=== PATIENT | female | born 1950 | race Two or more races ===

== ENCOUNTER 2024-02-23 17:01 | Inpatient (IN) | payer OTHER ==
[~2024-02-23] VITALS: Ht 157.5 cm; Wt 90.9 kg
[2024-02-23] MEDS ORDERED: ACETAMINOPHEN IV 1000 MG/100ML (10MG/ML) IV PRN (17:15)
[2024-02-23 17:35] VITALS: PULSE 112; RESP 22; O2SAT 98
[2024-02-23] MEDS: VANCOMYCIN 1GM/200ML 200 ML IV ONE (17:50)
[2024-02-23] MEDS: ACETAMINOPHEN IV 1000 MG/100ML (10MG/ML) IV ONE (17:55)
[2024-02-23 18:14] LABS: Basophils # (auto) 0.1 10 ^3/uL (0-0.2); Basophils % (auto) 0.3 % (0.0-2.0); Eosinophils # (auto) 0 10 ^3/uL (0-0.8); Monocytes # (auto) 1.1 10 ^3/uL (0-1.3); Monocytes % (auto) 5.5 % (0.0-12.0)
[2024-02-23 18:15] LABS: Hematocrit 30.3 % (36.0-46.0); Hemoglobin 9.9 g/dL (12.2-16.2); Lymphocytes % (auto) 5.2 % (10.0-50.0); Mean Corpuscular Hemoglobin 25.4 pg (28.0-32.0); Mean Corpuscular Hgb Conc. 32.7 g/dL (32.0-36.0); Mean Corpuscular Volume 77.6 fL (80.0-100.0); Neutrophils # (auto) 17.2 10 ^3/uL (1.6-8.6); Red Blood Cells 3.91 10^6/uL (4.0-5.20); White Blood Cell 19.4 10^3/uL (4.4-10.8)
[2024-02-23 18:30] LABS: INR 1.38 (0.9-1.15); Prothrombin Time 14.3 sec (9.3-11.8)
[2024-02-23] MEDS: KETOROLAC TROMETH 30 MG/ML 1ML VIAL IV ONE (19:12)
[2024-02-23] MEDS: CEFEPIME 2GM/50ML NS 50 ML IV ONE (19:12)
[2024-02-23 19:23] LABS: Alanine Aminotransferase 13 U/L (7-40); Albumin 3.2 g/dL (3.2-4.8); Alkaline Phosphatase 241 U/L (46-116); Anion Gap 9 (5-15); Aspartate Aminotransferase 48 U/L (13-40); BUN/Creatinine Ratio 6.1 (10.0-20.0); Blood Alcohol < 3.0 mg/dL (<10); Blood Urea Nitrogen 6 mg/dL (9-23); Calcium 8.3 mg/dL (8.5-10.1); Carbon Dioxide 20 mmol/L (20-30); Chloride 101 mmol/L (98-107); Glucose 238 mg/dL (74-106); Potassium 4.1 mmol/L (3.5-5.1); Sodium 130 mmol/L (136-145)
[2024-02-23 19:24] LABS: Bilirubin, Total 0.4 mg/dL (0.2-1.0); Total Protein 5.9 g/dL (5.7-8.2)
[2024-02-23 19:28] LABS: Magnesium 0.8 mg/dL (1.6-2.6)
[2024-02-23 19:30] VITALS: PULSE 91; RESP 20; O2SAT 96
[2024-02-23 20:28] LABS: Urine Bacteria MOD /hpf (None Seen); Urine Blood 2+ /uL (Negative); Urine Clarity Ex.Turbid (Clear); Urine Color Light-Orange (Yellow); Urine Mucus FEW (None Seen); Urine Protein, UAD 1+ (Negative); Urine Specific Gravity 1.017 (1.001-1.035); Urine Urobilinogen Normal (Negative); Urine WBC 81 /hpf (0 - 5); Urine WBC Clumps PRESENT /hpf (None Seen)
[2024-02-23 20:34] LABS: Amphetamine Screen, Urine Neg (NEGATIVE); Barbiturate Scree,Urine Neg (NEGATIVE); Benzodiazephine Screen, Urine Neg (NEGATIVE)
[2024-02-23 20:35] LABS: Cannabinoid Screen, Urine Neg (NEGATIVE); Cocaine Screen, Urine Neg (NEGATIVE); Opiate Scree,Urine Pos (NEGATIVE); Phencyclidine Screen, Urine Neg (NEGATIVE)
[2024-02-23] MEDS: SODIUM CHLORIDE 0.9% 2,000 ML IV ONE (20:56)
[2024-02-23] MEDS: MAGNESIUM SULFATE 1GM/100ML 100 ML IV SCH ×2 (20:57→23:40)
[2024-02-23] MEDS ORDERED: ACETAMINOPHEN 650 MG RECT SUPP PR PRN (22:00)
[2024-02-23] MEDS ORDERED: DOCUSATE SOD 100 MG CAP PO PRN (22:00)
[2024-02-23] MEDS ORDERED: VANCOMYCIN PER PHARMACY 0 MG IV SCH (22:00)
[2024-02-23] MEDS ORDERED: DEXTROSE (50%) 50ML SYRG IV PRN (22:00)
[2024-02-23] MEDS ORDERED: hydrALAZINE HCL 20 MG/ML VL IV PRN (22:00)
[2024-02-23] MEDS: SODIUM CHLORIDE 0.9% 250 ML IV ONE (23:31)
[2024-02-24] VITALS (7 sets, daily range): BP systolic 109–137; BP diastolic 46–80; PULSE 66–96; RESP 15–18; TEMP 98–100; O2SAT 96–100
[2024-02-24] MEDS ORDERED: MORPHINE SULFATE INJ 2 MG/ml SYRG IV PRN
[2024-02-24] MEDS ORDERED: NITROGLYCERIN 0.4 MG SL TAB SL PRN
[2024-02-24] MEDS: SODIUM CHLORIDE 0.9% 500 ML IV ONE (00:31)
[2024-02-24] MEDS: VANCOMYCIN 1,500 MG in D5W 5% 250 ML IV ONE ×2 (00:32→05:15)
[2024-02-24] MEDS: ACCU-CHEK COMFORT CURVE STRIP VI SCH ×2 (00:49→17:34)
[2024-02-24] MEDS: InsuLIN REG 1unit/0.01ml Soln (100units/ml) SC SCH ×2 (00:50→17:00)
[2024-02-24] MEDS: SODIUM CHLORIDE 0.9% 1,000 ML IV SCH (00:52)
[2024-02-24] MEDS: HYDROcodone-ACET 5/325MG TAB PO PRN (03:08)
[2024-02-24] MEDS: ONDANSETRON HCL 4 MG/2 ML VIAL IV PRN (03:13)
[2024-02-24] MEDS ORDERED: VANCOMYCIN 1,500 MG in D5W 5% 250 ML IV ONE (06:00)
[2024-02-24 06:46] LABS: Basophils # (auto) 0.1 10 ^3/uL (0-0.2); Basophils % (auto) 0.4 % (0.0-2.0); Eosinophils # (auto) 0 10 ^3/uL (0-0.8); Eosinophils % (auto) 0.1 % (0.0-7.0); Hemoglobin 8.2 g/dL (12.2-16.2); Neutrophils # (auto) 13.3 10 ^3/uL (1.6-8.6); White Blood Cell 15.2 10^3/uL (4.4-10.8)
[2024-02-24 06:47] LABS: Hematocrit 25.3 % (36.0-46.0); Lymphocytes % (auto) 6.3 % (10.0-50.0); Mean Corpuscular Hgb Conc. 32.4 g/dL (32.0-36.0); Mean Corpuscular Volume 77.2 fL (80.0-100.0); Monocytes # (auto) 0.9 10 ^3/uL (0-1.3); Neutrophils % (auto) 87.2 % (37.0-80.0); Red Blood Cells 3.28 10^6/uL (4.0-5.20)
[2024-02-24 07:20] LABS: Alanine Aminotransferase 12 U/L (7-40); Alkaline Phosphatase 179 U/L (46-116); Anion Gap 7 (5-15); BUN/Creatinine Ratio 8.9 (10.0-20.0); Blood Urea Nitrogen 8 mg/dL (9-23); Calcium 7.7 mg/dL (8.7-10.4); Carbon Dioxide 20 mmol/L (20-30); Chloride 103 mmol/L (98-107); Glucose 254 mg/dL (74-106); Potassium 3.7 mmol/L (3.5-5.1); Sodium 130 mmol/L (136-145)
[2024-02-24 07:21] LABS: Albumin 2.6 g/dL (3.2-4.8); Aspartate Aminotransferase 56 U/L (13-40); Bilirubin, Total 0.2 mg/dL (0.2-1.0); Total Protein 5.1 g/dL (5.7-8.2)
[2024-02-24] MEDS: cefTRIAXone 1GM/50ML D5W 50 ML IV SCH (09:07)
[2024-02-24] MEDS: PANTOPRAZOLE 40 MG/10 ML VIAL INJ IV SCH (09:07)
[2024-02-24] MEDS: ENOXAPARIN SOD 40 MG/0.4 ML SYRINGE SC SCH (09:07)
[2024-02-24] MEDS ORDERED: DIPH2.5T73 PO (11:45)
[2024-02-24] MEDS ORDERED: LOPE2CAP PO (11:45)
[2024-02-24] MEDS ORDERED: ONDA-155 PO (11:45)
[2024-02-24] MEDS ORDERED: INSU100I2 SC (11:45)
[2024-02-24] MEDS ORDERED: DEXTROSE (50%) 50ML SYRG IV PRN (12:15)
[2024-02-24] MEDS: MAGNESIUM OXIDE 400 MG TAB PO ONE (12:58)
[2024-02-24] MEDS: CEFEPIME 1GM/ 50ML 50 ML IV SCH (13:00)
[2024-02-24] MEDS: VANCOMYCIN 1GM/200ML 200 ML IV SCH (17:26)
[2024-02-24] MEDS ORDERED: MAGNESIUM OXIDE 400 MG TAB PO SCH (22:00)
== END 2024-02-24 20:48 | disposition short-term general hospital (02) | DRG 871 ==
LOC: EDBD 17:08 → ER 17:08 → TELE 23:48 → TELE-CENTR 23:48
PROVIDERS: ADMIT Nurse Practitioner Family; ATTEND Nurse Practitioner Family
DX: A41.9 Sepsis, unspecified organism (principal); G93.41 Metabolic encephalopathy; R65.21 Severe sepsis with septic shock; E87.1 Hypo-osmolality and hyponatremia; N39.0 Urinary tract infection, site not specified; E44.1 Mild protein-calorie malnutrition; J90 Pleural effusion, not elsewhere classified; R78.81 Bacteremia; E78.5 Hyperlipidemia, unspecified; E83.42 Hypomagnesemia; I10 Essential (primary) hypertension; E66.9 Obesity, unspecified; E11.65 Type 2 diabetes mellitus with hyperglycemia; F17.200 Nicotine dependence, unspecified, uncomplicated; Z93.3 Colostomy status; Z88.6 Allergy status to analgesic agent; Z88.5 Allergy status to narcotic agent; Z88.8 Allergy status to other drugs, medicaments and biological substances; Z79.899 Other long term (current) drug therapy; Z85.038 Personal history of other malignant neoplasm of large intestine; Z92.21 Personal history of antineoplastic chemotherapy; Z68.36 Body mass index [BMI] 36.0-36.9, adult
CPT/HCPCS: 36415; 51702; 71045; 71250; 80053; 80307; 80320; 81001; 82962; 83605; 83735; 84484; 85025; 85379; 85610; 85730; 86850; 86900; 86901; 87040; 87077; 87086; 87088; 87147; 87186; 93005; 96365; 96366; 96367; 96375; 99291; G0378; J0131; J0692; J1815; J1885; J2405; J2470; J7060